=== PATIENT | male | born 1965 | race Caucasian/White ===

== ENCOUNTER 2019-06-30 05:44 | Day surgery (SDC) | payer BC ==
[2019-06-21 09:44] VITALS: BMI 27.4
[2019-06-30] MEDS ORDERED: ceFAZolin SODIUM 1 GM VIAL ONE (06:56)
[2019-06-30] MEDS ORDERED: DEXAMETHASONE SOD PHOSPHATE 4 MG/1 ML VIAL ONE ×2 (06:56→08:39)
[2019-06-30] MEDS ORDERED: PROPOFOL 20 ML ONE ×3 (06:56→08:58)
[2019-06-30] MEDS ORDERED: SODIUM CHLORIDE 0.9% P/F 10 ML VIAL IJ ONE (06:56)
[2019-06-30] MEDS ORDERED: MIDAZOLAM HCL 2 MG/2 ML SINGLE DOSE VIAL ONE (07:04)
[2019-06-30] MEDS ORDERED: ROPIVACAINE HCL 0.5% 30ML VIAL ONE (07:04)
--- NOTE | 2019-06-30 07:26 | OP ---
Operative Note - Note: Operative Date: 06/30/19 Pre-Operative Diagnosis: Left shoulder rotator cuff tear Operation: Left shoulder revision rotator cuff repair, subacromial decompression and biceps tenodesis Post-Operative Diagnosis: Same as Pre-op Surgeon: Amadeo Razo Taxation Accountant: Slime Cullen Anesthesia: General (regional plus sedation) Operative Report Dictated: Yes
[2019-06-30] MEDS ORDERED: KETOROLAC TROMETHAMINE 30 MG/1 ML VIAL ONE (08:39)
[2019-06-30] MEDS ORDERED: EPHEDRINE SULFATE/0.9% NACL/PF 50 MG/10 ML SYRINGE NR ONE (08:39)
[2019-06-30] MEDS ORDERED: ONDANSETRON 4 MG/2 ML VIAL ONE (08:39)
[2019-06-30] MEDS ORDERED: LIDOCAINE 1%/EPI 1:100000 (20 ML MULTI DOSE VIAL) ONE (08:58)
[2019-06-30] MEDS ORDERED: LIDOCAINE 1%/EPI 1:100000 (50 ML MULTI DOSE VIAL) NR ONE (09:45)
[2019-06-30] MEDS ORDERED: ONDANSETRON 4 MG/2 ML VIAL IVPUSH PRN (10:40)
[2019-06-30] MEDS ORDERED: oxyCODONE HCL 5 MG TABLET PO PRN ×2 (10:40)
[2019-06-30] MEDS ORDERED: LACTATED RINGERS SOLUTION 1,000 ML IV SCH (10:45)
--- NOTE | 2019-06-30 11:34 | OP ---
DATE OF OPERATION: 06/30/2019 PREOPERATIVE DIAGNOSES: Recurrent rotator cuff tear, left shoulder; biceps tendinopathy; subcoracoid and subacromial impingement. POSTOPERATIVE DIAGNOSES: Recurrent rotator cuff tear, left shoulder; biceps tendinopathy; subcoracoid and subacromial impingement. PROCEDURE: Left shoulder revision rotator cuff repair, biceps tenodesis, subcoracoid and subacromial decompression. SURGEON: Amadeo Razo MD [employer] WORKER: IZA Lau, whose skillful assistance was necessary for the safe and timely performance of this procedure. Ms. Cullen was able to provide limb positioning, retraction, assist in driving the camera, suture passage, as well as insertion of orthopedic fixation hardware. ANESTHESIA: Regional plus general. POSTOPERATIVE CONDITION: Stable. COMPLICATIONS: None. INDICATIONS: This is a pleasant gentleman who had previously underwent arthroscopic rotator cuff repair, but continued to experience symptoms despite extensive physical therapy. MRI demonstrated some subscapularis tearing, possible recurrent supraspinatus tearing, subcoracoid impingement, and biceps tendinopathy. Given these findings, patient elected for revision arthroscopy. Prior to surgery, the risks, benefits, and alternatives of surgery were discussed with the patient in detail including bleeding, infection, neurovascular injury, need for further surgery, postoperative pain and stiffness, recurrent tear, loss of strength and function. We discussed medical risks such as heart attack, stroke, DVT, PE, and . I addressed the use of perioperative antibiotic and DVT prophylaxis. I addressed all the patient's questions and concerns, we reviewed the postoperative protocol, and he elected to proceed. DESCRIPTION OF PROCEDURE: Patient was brought to the operating room after administration of regional block in the preoperative holding area. The patient was then placed into the beach chair position, careful to maintain cushioning of all the bony prominences and maintain the cervical spine in neutral positioning. The left upper extremity was then examined, demonstrating full range of motion. The patient was then prepped and draped in the usual sterile fashion. A preoperative dose of antibiotics was given, and the usual timeout procedure was performed. Bony landmarks were then marked out. An 11 blade was then used to establish a posterior viewing portal. The arthroscope was passed into the glenohumeral joint. Examination of the glenoid and humeral surfaces demonstrated minimal articular wear. There was some slight fraying on the labral tissue more superiorly. The biceps was indurated and erythematous. There was some synovitis and synovial fraying within the joint which was identified. An anterior portal was now established under spinal needle localization. Some of synovium blocking the viewing was debrided using the shaver. The labrum was then visualized in its entirety, and there was minimal labral pathology present. The arthroscope was then passed anteriorly. Here, there was significant fraying of the upper border of subscapularis. There appeared to be an area where the subscapularis was delaminated off of the lesser tuberosity. The inferior portion did appear more intact. Decision was made to perform a subscapularis repair. Prior to this, a biceps tenotomy was then performed. The biceps was sitting still in the way of the subscapularis repair, and therefore, decision was made to perform the biceps tenodesis at this time. The scope was withdrawn from the shoulder. The skin was again prepped using a chlorhexidine prep stick. Incision was now planned out over the inferior border of the pectoralis major. This was carried down through skin and subcutaneous tissue. Local anesthetic was used in this region, lidocaine with epinephrine 1%. Blunt spreading was used to expose the lower border of the pectoralis. A finger was then slid under the pectoralis and along the biceps groove. The biceps tendon was then retrieved out the wound. There was significant tendinopathy noted to the biceps. The biceps groove was then rasped using an arthroscopic rasp. A Q-FIX anchor was drilled in the mid-portion of the groove and inserted. These were then whipstitched around the tendon. The proximal portion of the tendon was removed. The whipstitch ends were then secured into the groove using ben technique and then tied down. Satisfactory tension was obtained on the biceps. Attention was then turned back arthroscopically. Prior to doing this, the wound was closed using 4-0 Vicryl and 3-0 nylon. The of the tuberosity was now debrided using arthroscopic rasp. A single Q-FIX anchor was now inserted in the mid-portion of the lesser tuberosity by retracting the subscapularis inferiorly. Utilizing a horizontal mattress technique, a bird-beak suture passer was used to secure the subscapularis which was then tied. The subscapularis was now stable and moved along with the lesser tuberosity throughout a range of motion. Now, attention was turned to the supraspinatus and infraspinatus. Here, it appeared that the repair was successful. There was some residual suture material in the undersurface of the cuff, which was cut with the open suture cutter. It was not able to be retrieved out of the joint, and therefore, it was left in place to be retrieved out the subacromial space. Given that the rotator cuff was stable on the articular surface, no additional repair was felt to be necessary. The subacromial space was now examined using the arthroscope. Here, a small amount of bursa was limiting visualization. The previously passed sutures were noted to be present in the subacromial space without tension on them. Utilizing the open suture cutter, the remainder of the sutures was removed to avoid any mechanical impingement. After passing the rotator cuff throughout a range of motion, there were no additional tears seen on the bursal surface. The rough surface of the undersurface of the acromion was now debrided using the wand as well as the shaver. This was debrided down to a smooth base and a subacromial decompression. It should be noted that prior to going into the subacromial space, the shaver was passed through to debride the undersurface of the coracoid. This had been done by using the wand to open up the rotator cuff interval. The coracoid was then easily visualized as it was in close proximity to the subscapularis. Shaver was used to debride a flat surface on the back of the coracoid so that no subcoracoid impingement would occur. After the subacromial decompression, the excess fluid was withdrawn from the joint. The portals were sutured using 3-0 nylon. Sterile dressings were placed. The patient was extubated and transferred to recovery room in stable condition. Laura [id number]
[2019-06-30 11:43] VITALS: TEMP 97.9
[2019-06-30 12:53] VITALS: BP 137/74; PULSE 92
--- NOTE | 2019-07-04 15:23 | PATH ---
Surgical Pathology Report Patient Name: BARB HERRERA Med. Rec. #: [id number] /Age/Gender: 1965 (Age: 54) / M Account: [id number] Location: [facility] Taken: 06/30/2019 Received: 06/30/2019 Reported: 07/04/2019 Physicians: Amadeo Razo M.D. Specimen(s) Received LEFT BICEPS TENDON Clinical History Left rotator cuff tear Final Diagnosis LEFT BICEPS TENDON, EXCISION: PORTION OF TENDON WITH FIBROSIS. Electronically Signed Ace Tovar M.D. Gross Description Received in formalin labeled "biceps tendon left," is a 6.2 x 0.6 x 0.3 cm cruz, irregular portion of fibrous tissue, consistent with a portion of tendon. Standpipe Tender sections are submitted in one cassette. /07/01/2019 saudi07/01/2019
== END 2019-06-30 12:45 | disposition home or self-care (01) ==
LOC: FASU 05:44
PROVIDERS: ATTEND Orthopaedic Surgery Sports Medicine
PROC: 0RNK4ZZ Release Left Shoulder Joint, Percutaneous Endoscopic Approach (ICD-10-PCS; 2019-06-30)
PROC: 0LQ24ZZ Repair Left Shoulder Tendon, Percutaneous Endoscopic Approach (ICD-10-PCS; principal; 2019-06-30 08:34)
PROC: 0LS24ZZ Reposition Left Shoulder Tendon, Percutaneous Endoscopic Approach (ICD-10-PCS; 2019-06-30 08:34)
DX: M75.102 Unspecified rotator cuff tear or rupture of left shoulder, not specified as traumatic (principal); M75.22 Bicipital tendinitis, left shoulder; M75.42 Impingement syndrome of left shoulder; M65.812 Other synovitis and tenosynovitis, left shoulder
CPT/HCPCS: 88304-TC; 94760

== ENCOUNTER 2023-06-11 08:14 | Day surgery (SDC) | payer BC ==
[2023-06-02 14:56] VITALS: BMI 27.7
[2023-06-11] MEDS ORDERED: MIDAZOLAM HCL 2 MG/2 ML SINGLE DOSE VIAL ONE ×4 (10:03→13:50)
[2023-06-11] MEDS ORDERED: DEXAMETHASONE SOD PHOSPHATE/PF 10 MG/ML SDV ONE (10:03)
[2023-06-11] MEDS ORDERED: ROPIVACAINE HCL 0.5% 30ML VIAL ONE (10:03)
[2023-06-11] MEDS ORDERED: FENTANYL CITRATE/PF 50 MCG/ML VIAL ONE (10:28)
[2023-06-11] MEDS ORDERED: ceFAZolin SODIUM 1 GM VIAL ONE (10:56)
[2023-06-11 15:03] VITALS: TEMP 97.7
[2023-06-11 15:20] VITALS: RESP 18
[2023-06-11 15:45] VITALS: BP 130/71; PULSE 68
== END 2023-06-11 15:47 | disposition home or self-care (01) ==
LOC: FASU 08:14
PROVIDERS: ATTEND Orthopaedic Surgery Sports Medicine
PROC: 0LS34ZZ Reposition Right Upper Arm Tendon, Percutaneous Endoscopic Approach (ICD-10-PCS; principal; 2023-06-11 11:14)
PROC: 0RNJ4ZZ Release Right Shoulder Joint, Percutaneous Endoscopic Approach (ICD-10-PCS; 2023-06-11 11:14)
DX: M75.121 Complete rotator cuff tear or rupture of right shoulder, not specified as traumatic (principal); M75.41 Impingement syndrome of right shoulder; M75.21 Bicipital tendinitis, right shoulder
CPT/HCPCS: 94760; C1713; C1889